=== PATIENT | male | born 1955 | race Caucasian/White ===

== ENCOUNTER 2019-05-17 11:23 | Inpatient (IN) | payer OTHER ==
[2019-05-17 12:21] VITALS: BMI 39.6
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
[2019-05-17] MEDS ORDERED: MAGNESIUM HYDROX 2400MG/30ML ORAL SUSPENSION 30 ML CUP PO PRN (13:26)
[2019-05-17] MEDS ORDERED: MAG HYDROX/AL HYDROX/SIMETH 30 ML UNIT-DOSE CUP PO PRN (13:26)
[2019-05-17] MEDS ORDERED: P-EPHED 60MG/TRIPROLIDI 2.5MG TABLET PO PRN (13:26)
[2019-05-17] MEDS ORDERED: LOPERAMIDE HCL 2 MG CAPSULE PO PRN (13:26)
[2019-05-17] MEDS ORDERED: MAGNESIUM CITRATE 300 ML BOTTLE PO PRN (13:26)
[2019-05-17] MEDS ORDERED: hydrOXYzine PAMOATE 25 MG CAPSULE (FP) PO PRN (13:26)
[2019-05-17] MEDS ORDERED: IBUPROFEN 400 MG TABLET (FP) PO PRN (13:26)
[2019-05-17] MEDS ORDERED: TUBERCULIN PPD 5 TU/0.1ML VIAL ID ONE (14:15)
[2019-05-17] MEDS: GABAPENTIN 300 MG CAPSULE PO SCH ×2 (14:24→21:17)
--- NOTE | 2019-05-17 15:29 | PN ---
[facility] Progress Note Note: Pt is a 63 y/o male with a hx of RASHID admitted to rehab from [facility] today.PMHx:HTN, Type 2 DM,DVT,Varicose Veins/sx left leg, Ambulates with walker. Psych Hx: Depreesion/Anxiety;[id number]-[id number]-txff sleeping and visual-"when i'm sleeping i see people". Pt reports he has a PCP(i don't remember the name, i got it in my wallet"). Vital Signs - 24 hr 05/17/19 11:45 Temperature 97.0 F L Pulse Rate 89 Respiratory 20 Rate Blood Pressure 161/105 H Alert o x 3,denies s/h/i nad oob ambulating with steady gait extremities/skin:varicose veins left lower leg,s/p surgery in 2019;left LE slight non-pitting edema, no redness skin intact. A/P new rehab pt Maintain safety cont. rehab f/u with psych consult.
[2019-05-17 17:39] LABS: HEMATOCRIT 40.4 % (35.4-49); HEMOGLOBIN 13.3 GM/dL (11.7-16.9); MCH 31.7 pg (25.7-33.7); MCHC 32.9 g/dl (32.0-35.9); MEAN CELL VOLUME 96.5 fl (80-96); MEAN PLT VOLUME 8.8 fl (7.5-11.1); PLATELET COUNT 310 K/MM3 (134-434); RBC 4.19 M/mm3 (4.00-5.60); RDW 15.5 % (11.9-15.9); WHITE BLOOD COUNT 7.5 K/mm3 (4.0-10.0)
[2019-05-17] MEDS: RIVAROXABAN 20 MG TABLET PO SCH (17:42)
[2019-05-17 18:05] LABS: ALBUMIN 3.5 g/dl (3.4-5.0); BILIRUBIN,TOTAL 0.2 mg/dL (0.2-1); BLOOD UREA NITROGEN 9.2 mg/dL (7-18)
[2019-05-17] MEDS: traZODone HCL 50 MG TABLET (FP) PO SCH (21:17)
[2019-05-17] MEDS: MONTELUKAST NA 10 MG TABLET PO SCH (21:17)
[2019-05-17] MEDS: THIAMINE HCL 100 MG TABLET (FP) PO SCH (21:17)
[2019-05-17] MEDS: ACETAMINOPHEN 325 MG TABLET (FP) PO PRN (21:19)
[2019-05-18] MEDS: GABAPENTIN 300 MG CAPSULE PO SCH ×3 (06:49→21:15)
[2019-05-18] MEDS ORDERED: ROSUVASTATIN CA 10 MG TABLET (FP) ONE (09:08)
[2019-05-18] MEDS: FUROSEMIDE 20 MG TABLET (FP) PO SCH (10:00)
[2019-05-18] MEDS: LISINOPRIL 20 MG TABLET (FP) PO SCH (10:00)
[2019-05-18] MEDS: PRENATAL VITAMINS W/ FOLIC ACID TABLET (FP) PO SCH (10:00)
[2019-05-18] MEDS: HYDROCHLOROTHIAZIDE 12.5 MG CAPSULE (FP) PO SCH (10:00)
[2019-05-18] MEDS: ROSUVASTATIN CA 20 MG TABLET (FP) PO SCH (10:01)
--- NOTE | 2019-05-18 10:04 | CONSULT ---
[facility] Psychiatric Consult - Data Date of interview: 05/18/19 Admission source: [facility] Identifying data: Patient is a 63 year old single male, father of four, unemployed, domiciled, and is supported by [facility]. This is one of multiple admissions for patient. Patient admitted to for alcohol and cocaine dependence. Substance Abuse History: Smoking Cessation. Smoking history: Never smoked. Hx Chewing Tobacco Use: No. - Substance & Tx. History. Hx Alcohol Use: Yes. Hx Substance Use: Yes. Substance Use Type: Alcohol, Cocaine. Hx Substance Use Treatment: Yes ([facility] to 05/17/2009). - Substances abused. Alcohol. Substance route: Oral. Frequency: Daily. Amount used: 2 PINTS VODKA. Age of first use: 11. Date of last use: 05/14/19. Cocaine. Substance route: Smoking. Frequency: Daily. Amount used: 2 GRAMS. Age of first use: 14. Date of last use: 05/14/19 Medical History: back surgery and varicose vein surgery left leg, dvt both legs , hypertension, type 2 dm Psychiatric History: Patient's first psychiatric contact was at 16 years of age after he was admitted to [facility] secondary to a suicide attempt. Mr. Arora reports two additional hospitalizations to [facility] with the last admission occuring in the . Patient reports history of depressed mood, anhedonia, amotivation, and loss of energy. States he has experienced auditory hallucinations of hearing his mother speak to him (mother no longer living) 2-3 times per month. States that he is currently provided with outpatient psychiatric care at the [facility] in the [place] and is prescribed Cymbalta 60mg + Trazodone 150mg HS. Patient currently denies suicidal/homicidal ideation, auditory/visual hallucinations. No psychosis noted. Physical/Sexual Abuse/Trauma History: denies. Mental Status Exam - Mental Status Exam Alert and Oriented to: Time, Place, Person Cognitive Function: Good Patient Appearance: Well Groomed Mood: Sad Affect: Appropriate Patient Behavior: Appropriate, Cooperative Speech Pattern: Appropriate Voice Loudness: Normal Thought Process: Goal Oriented Thought Disorder: Not Present Hallucinations: Denies Suicidal Ideation: Denies Homicidal Ideation: Denies Insight/Judgement: Poor Sleep: Fair Appetite: Fair Muscle strength/Tone: Normal Gait/Station: Other (Ambulates with a walker.) Psychiatric Findings - Problem List (Kinta 1, 2,3) (1) Substance induced mood disorder Current Visit: Yes Status: Chronic (2) Major depressive disorder Current Visit: Yes Status: Chronic (3) alcohol dependence Current Visit: Yes Status: Acute (4) cocaine dependence Current Visit: Yes Status: Acute - Initial Treatment Plan Initial Treatment Plan: Psychoeducation provided. Rehab in progress. Will order Cymbalta 60mg daily + Trazodone 150mg HS. Benefits and side effects discussed. Verbal consent given.
[2019-05-18 10:15] LABS: URINE APPEARANCE CLEAR; URINE BILIRUBIN NEGATIVE (NEGATIVE); URINE COLOR YELLOW; URINE GLUCOSE (UA) NEGATIVE (NEGATIVE); URINE KETONE NEGATIVE (NEGATIVE); URINE LEUK ESTERASE NEGATIVE (NEGATIVE); URINE NITRITE NEGATIVE (NEGATIVE); URINE PROTEIN NEGATIVE (NEGATIVE); URINE UROBILINOGEN 0.2 mg/dL (0.2-1.0)
[2019-05-18] MEDS: DULoxetine HCL 30 MG CAPSULE.DR PO SCH (11:10)
[2019-05-18] MEDS: RIVAROXABAN 20 MG TABLET PO SCH (16:52)
[2019-05-18] MEDS: MONTELUKAST NA 10 MG TABLET PO SCH (21:15)
[2019-05-18] MEDS: traZODone HCL 50 MG TABLET (FP) PO SCH (21:15)
[2019-05-18] MEDS: THIAMINE HCL 100 MG TABLET (FP) PO SCH (21:15)
[2019-05-18] MEDS: ALBUTEROL SO4 8 GM HFA INHALER IH PRN (21:17)
[2019-05-19] MEDS: GABAPENTIN 300 MG CAPSULE PO SCH ×3 (06:36→21:12)
[2019-05-19] MEDS ORDERED: ROSUVASTATIN CA 10 MG TABLET (FP) ONE (08:51)
[2019-05-19] MEDS: PRENATAL VITAMINS W/ FOLIC ACID TABLET (FP) PO SCH (11:25)
[2019-05-19] MEDS: DULoxetine HCL 30 MG CAPSULE.DR PO SCH (11:25)
[2019-05-19] MEDS: ROSUVASTATIN CA 20 MG TABLET (FP) PO SCH (11:26)
[2019-05-19] MEDS: HYDROCHLOROTHIAZIDE 12.5 MG CAPSULE (FP) PO SCH (11:26)
[2019-05-19] MEDS: LISINOPRIL 20 MG TABLET (FP) PO SCH (11:26)
[2019-05-19] MEDS: FUROSEMIDE 20 MG TABLET (FP) PO SCH (11:26)
[2019-05-19] MEDS: RIVAROXABAN 20 MG TABLET PO SCH (17:26)
[2019-05-19] MEDS: traZODone HCL 50 MG TABLET (FP) PO SCH (21:12)
[2019-05-19] MEDS: THIAMINE HCL 100 MG TABLET (FP) PO SCH (21:12)
[2019-05-19] MEDS: MONTELUKAST NA 10 MG TABLET PO SCH (21:12)
[2019-05-19] MEDS: ACETAMINOPHEN 325 MG TABLET (FP) PO PRN (23:38)
[2019-05-20] MEDS: GABAPENTIN 300 MG CAPSULE PO SCH ×3 (07:20→21:14)
[2019-05-20] MEDS ORDERED: ROSUVASTATIN CA 10 MG TABLET (FP) ONE (09:14)
[2019-05-20] MEDS: DULoxetine HCL 30 MG CAPSULE.DR PO SCH (10:06)
[2019-05-20] MEDS: PRENATAL VITAMINS W/ FOLIC ACID TABLET (FP) PO SCH (10:06)
[2019-05-20] MEDS: HYDROCHLOROTHIAZIDE 12.5 MG CAPSULE (FP) PO SCH (10:06)
[2019-05-20] MEDS: FUROSEMIDE 20 MG TABLET (FP) PO SCH (10:07)
[2019-05-20] MEDS: LISINOPRIL 20 MG TABLET (FP) PO SCH (10:07)
[2019-05-20] MEDS: ROSUVASTATIN CA 20 MG TABLET (FP) PO SCH (12:57)
[2019-05-20] MEDS: RIVAROXABAN 20 MG TABLET PO SCH (17:59)
[2019-05-20] MEDS: traZODone HCL 50 MG TABLET (FP) PO SCH (21:14)
[2019-05-20] MEDS: THIAMINE HCL 100 MG TABLET (FP) PO SCH (21:15)
[2019-05-20] MEDS: MONTELUKAST NA 10 MG TABLET PO SCH (21:15)
[2019-05-21] MEDS: ALBUTEROL SO4 8 GM HFA INHALER IH PRN (07:05)
[2019-05-21] MEDS: GABAPENTIN 300 MG CAPSULE PO SCH ×3 (07:05→21:15)
[2019-05-21] MEDS: guaiFENesin 200 MG/10 ML 10 ML UNIT-DOSE CUPS PO PRN ×2 (07:06→14:27)
[2019-05-21] MEDS: PRENATAL VITAMINS W/ FOLIC ACID TABLET (FP) PO SCH (10:09)
[2019-05-21] MEDS: FUROSEMIDE 20 MG TABLET (FP) PO SCH (10:09)
[2019-05-21] MEDS: DULoxetine HCL 30 MG CAPSULE.DR PO SCH (10:09)
[2019-05-21] MEDS: ROSUVASTATIN CA 20 MG TABLET (FP) PO SCH (10:09)
[2019-05-21] MEDS: LISINOPRIL 20 MG TABLET (FP) PO SCH (10:09)
[2019-05-21] MEDS: HYDROCHLOROTHIAZIDE 12.5 MG CAPSULE (FP) PO SCH (10:09)
[2019-05-21] MEDS: MENTHOL/PHENOL 1 EACH UD MM PRN (10:10)
[2019-05-21] MEDS: METHOCARBAMOL 500 MG TABLET PO PRN ×2 (10:12→21:15)
[2019-05-21] MEDS: ACETAMINOPHEN 325 MG TABLET (FP) PO PRN (10:12)
[2019-05-21] MEDS: RIVAROXABAN 20 MG TABLET PO SCH (17:48)
[2019-05-21] MEDS: THIAMINE HCL 100 MG TABLET (FP) PO SCH (21:14)
[2019-05-21] MEDS: traZODone HCL 50 MG TABLET (FP) PO SCH (21:14)
[2019-05-21] MEDS: MONTELUKAST NA 10 MG TABLET PO SCH (21:15)
[2019-05-21] MEDS: MELATONIN 5 MG TABLETS PO PRN (21:15)
[2019-05-22] MEDS: GABAPENTIN 300 MG CAPSULE PO SCH ×3 (06:28→21:16)
[2019-05-22] MEDS: guaiFENesin 200 MG/10 ML 10 ML UNIT-DOSE CUPS PO PRN (06:29)
[2019-05-22] MEDS: DULoxetine HCL 30 MG CAPSULE.DR PO SCH (10:28)
[2019-05-22] MEDS: PRENATAL VITAMINS W/ FOLIC ACID TABLET (FP) PO SCH (10:29)
[2019-05-22] MEDS: LISINOPRIL 20 MG TABLET (FP) PO SCH (10:29)
[2019-05-22] MEDS: ROSUVASTATIN CA 20 MG TABLET (FP) PO SCH (10:29)
[2019-05-22] MEDS: HYDROCHLOROTHIAZIDE 12.5 MG CAPSULE (FP) PO SCH (10:29)
[2019-05-22] MEDS: FUROSEMIDE 20 MG TABLET (FP) PO SCH (10:29)
[2019-05-22] MEDS: ALBUTEROL SO4 8 GM HFA INHALER IH PRN (10:31)
[2019-05-22] MEDS: RIVAROXABAN 20 MG TABLET PO SCH (17:38)
[2019-05-22] MEDS: METHOCARBAMOL 500 MG TABLET PO PRN (21:16)
[2019-05-22] MEDS: traZODone HCL 50 MG TABLET (FP) PO SCH (21:16)
[2019-05-22] MEDS: THIAMINE HCL 100 MG TABLET (FP) PO SCH (21:16)
[2019-05-22] MEDS: MONTELUKAST NA 10 MG TABLET PO SCH (21:16)
[2019-05-23] MEDS: GABAPENTIN 300 MG CAPSULE PO SCH ×3 (06:38→21:15)
[2019-05-23] MEDS: ALBUTEROL SO4 8 GM HFA INHALER IH PRN (10:52)
[2019-05-23] MEDS: DULoxetine HCL 30 MG CAPSULE.DR PO SCH (10:53)
[2019-05-23] MEDS: FUROSEMIDE 20 MG TABLET (FP) PO SCH (10:53)
[2019-05-23] MEDS: LISINOPRIL 20 MG TABLET (FP) PO SCH (10:53)
[2019-05-23] MEDS: PRENATAL VITAMINS W/ FOLIC ACID TABLET (FP) PO SCH (10:53)
[2019-05-23] MEDS: ROSUVASTATIN CA 20 MG TABLET (FP) PO SCH (10:53)
[2019-05-23] MEDS: HYDROCHLOROTHIAZIDE 12.5 MG CAPSULE (FP) PO SCH (10:53)
[2019-05-23] MEDS: METHOCARBAMOL 500 MG TABLET PO PRN ×2 (15:33→21:15)
[2019-05-23] MEDS: ACETAMINOPHEN 325 MG TABLET (FP) PO PRN (15:34)
[2019-05-23] MEDS: RIVAROXABAN 20 MG TABLET PO SCH (17:56)
[2019-05-23] MEDS: MONTELUKAST NA 10 MG TABLET PO SCH (21:15)
[2019-05-23] MEDS: traZODone HCL 50 MG TABLET (FP) PO SCH (21:15)
[2019-05-23] MEDS: THIAMINE HCL 100 MG TABLET (FP) PO SCH (21:15)
[2019-05-24] MEDS: GABAPENTIN 300 MG CAPSULE PO SCH ×3 (06:59→21:02)
[2019-05-24] MEDS: ALBUTEROL SO4 8 GM HFA INHALER IH PRN (07:01)
[2019-05-24] MEDS: DULoxetine HCL 30 MG CAPSULE.DR PO SCH (10:23)
[2019-05-24] MEDS: LISINOPRIL 20 MG TABLET (FP) PO SCH (10:23)
[2019-05-24] MEDS: FUROSEMIDE 20 MG TABLET (FP) PO SCH (10:23)
[2019-05-24] MEDS: ROSUVASTATIN CA 20 MG TABLET (FP) PO SCH (10:24)
[2019-05-24] MEDS: PRENATAL VITAMINS W/ FOLIC ACID TABLET (FP) PO SCH (10:24)
[2019-05-24] MEDS: HYDROCHLOROTHIAZIDE 12.5 MG CAPSULE (FP) PO SCH (10:24)
[2019-05-24] MEDS: RIVAROXABAN 20 MG TABLET PO SCH (17:05)
[2019-05-24] MEDS: THIAMINE HCL 100 MG TABLET (FP) PO SCH (21:02)
[2019-05-24] MEDS: traZODone HCL 50 MG TABLET (FP) PO SCH (21:02)
[2019-05-24] MEDS: MONTELUKAST NA 10 MG TABLET PO SCH (21:02)
[2019-05-25] MEDS: GABAPENTIN 300 MG CAPSULE PO SCH ×3 (06:56→21:11)
[2019-05-25] MEDS: ALBUTEROL SO4 8 GM HFA INHALER IH PRN (06:56)
[2019-05-25] MEDS: FUROSEMIDE 20 MG TABLET (FP) PO SCH (09:49)
[2019-05-25] MEDS: HYDROCHLOROTHIAZIDE 12.5 MG CAPSULE (FP) PO SCH (09:49)
[2019-05-25] MEDS: DULoxetine HCL 30 MG CAPSULE.DR PO SCH (09:49)
[2019-05-25] MEDS: LISINOPRIL 20 MG TABLET (FP) PO SCH (09:49)
[2019-05-25] MEDS: PRENATAL VITAMINS W/ FOLIC ACID TABLET (FP) PO SCH (09:49)
[2019-05-25] MEDS: ROSUVASTATIN CA 20 MG TABLET (FP) PO SCH (09:49)
[2019-05-25] MEDS: guaiFENesin 200 MG/10 ML 10 ML UNIT-DOSE CUPS PO PRN (09:50)
[2019-05-25] MEDS: RIVAROXABAN 20 MG TABLET PO SCH (16:32)
[2019-05-25] MEDS: THIAMINE HCL 100 MG TABLET (FP) PO SCH (21:10)
[2019-05-25] MEDS: traZODone HCL 50 MG TABLET (FP) PO SCH (21:10)
[2019-05-25] MEDS: MONTELUKAST NA 10 MG TABLET PO SCH (21:11)
[2019-05-26] MEDS: GABAPENTIN 300 MG CAPSULE PO SCH ×3 (06:29→21:22)
[2019-05-26] MEDS: ACETAMINOPHEN 325 MG TABLET (FP) PO PRN (06:30)
[2019-05-26] MEDS: DULoxetine HCL 30 MG CAPSULE.DR PO SCH (09:49)
[2019-05-26] MEDS: FUROSEMIDE 20 MG TABLET (FP) PO SCH (09:49)
[2019-05-26] MEDS: ROSUVASTATIN CA 20 MG TABLET (FP) PO SCH (09:49)
[2019-05-26] MEDS: LISINOPRIL 20 MG TABLET (FP) PO SCH (09:49)
[2019-05-26] MEDS: HYDROCHLOROTHIAZIDE 12.5 MG CAPSULE (FP) PO SCH (09:49)
[2019-05-26] MEDS: PRENATAL VITAMINS W/ FOLIC ACID TABLET (FP) PO SCH (09:49)
[2019-05-26] MEDS: RIVAROXABAN 20 MG TABLET PO SCH (16:42)
[2019-05-26] MEDS: traZODone HCL 50 MG TABLET (FP) PO SCH (21:21)
[2019-05-26] MEDS: THIAMINE HCL 100 MG TABLET (FP) PO SCH (21:22)
[2019-05-26] MEDS: MELATONIN 5 MG TABLETS PO PRN (21:22)
[2019-05-26] MEDS: MONTELUKAST NA 10 MG TABLET PO SCH (21:22)
[2019-05-27] MEDS: GABAPENTIN 300 MG CAPSULE PO SCH ×3 (07:24→21:16)
[2019-05-27] MEDS: DULoxetine HCL 30 MG CAPSULE.DR PO SCH (09:58)
[2019-05-27] MEDS: FUROSEMIDE 20 MG TABLET (FP) PO SCH (09:58)
[2019-05-27] MEDS: LISINOPRIL 20 MG TABLET (FP) PO SCH (09:59)
[2019-05-27] MEDS: ALBUTEROL SO4 8 GM HFA INHALER IH PRN (09:59)
[2019-05-27] MEDS: ROSUVASTATIN CA 20 MG TABLET (FP) PO SCH (09:59)
[2019-05-27] MEDS: PRENATAL VITAMINS W/ FOLIC ACID TABLET (FP) PO SCH (09:59)
[2019-05-27] MEDS: METHOCARBAMOL 500 MG TABLET PO PRN (10:00)
[2019-05-27] MEDS: guaiFENesin 200 MG/10 ML 10 ML UNIT-DOSE CUPS PO PRN (10:01)
[2019-05-27] MEDS: HYDROCHLOROTHIAZIDE 12.5 MG CAPSULE (FP) PO SCH (10:01)
[2019-05-27] MEDS: RIVAROXABAN 20 MG TABLET PO SCH (16:51)
[2019-05-27] MEDS: traZODone HCL 50 MG TABLET (FP) PO SCH (21:16)
[2019-05-27] MEDS: MONTELUKAST NA 10 MG TABLET PO SCH (21:16)
[2019-05-27] MEDS: THIAMINE HCL 100 MG TABLET (FP) PO SCH (21:16)
[2019-05-28] MEDS: GABAPENTIN 300 MG CAPSULE PO SCH ×3 (07:10→21:20)
[2019-05-28] MEDS: PRENATAL VITAMINS W/ FOLIC ACID TABLET (FP) PO SCH (10:22)
[2019-05-28] MEDS: DULoxetine HCL 30 MG CAPSULE.DR PO SCH (10:22)
[2019-05-28] MEDS: ALBUTEROL SO4 8 GM HFA INHALER IH PRN (10:23)
[2019-05-28] MEDS: LISINOPRIL 20 MG TABLET (FP) PO SCH (10:23)
[2019-05-28] MEDS: FUROSEMIDE 20 MG TABLET (FP) PO SCH (10:23)
[2019-05-28] MEDS: ROSUVASTATIN CA 20 MG TABLET (FP) PO SCH (10:23)
[2019-05-28] MEDS: HYDROCHLOROTHIAZIDE 12.5 MG CAPSULE (FP) PO SCH (10:23)
[2019-05-28] MEDS: RIVAROXABAN 20 MG TABLET PO SCH (16:34)
[2019-05-28] MEDS: THIAMINE HCL 100 MG TABLET (FP) PO SCH (21:20)
[2019-05-28] MEDS: traZODone HCL 50 MG TABLET (FP) PO SCH (21:20)
[2019-05-28] MEDS: MONTELUKAST NA 10 MG TABLET PO SCH (21:20)
[2019-05-29] MEDS: GABAPENTIN 300 MG CAPSULE PO SCH ×3 (06:54→21:22)
[2019-05-29] MEDS: ACETAMINOPHEN 325 MG TABLET (FP) PO PRN (07:01)
[2019-05-29] MEDS: guaiFENesin 200 MG/10 ML 10 ML UNIT-DOSE CUPS PO PRN (07:01)
[2019-05-29] MEDS: DULoxetine HCL 30 MG CAPSULE.DR PO SCH (10:17)
[2019-05-29] MEDS: FUROSEMIDE 20 MG TABLET (FP) PO SCH (10:17)
[2019-05-29] MEDS: LISINOPRIL 20 MG TABLET (FP) PO SCH (10:17)
[2019-05-29] MEDS: PRENATAL VITAMINS W/ FOLIC ACID TABLET (FP) PO SCH (10:17)
[2019-05-29] MEDS: ROSUVASTATIN CA 20 MG TABLET (FP) PO SCH (10:18)
[2019-05-29] MEDS: HYDROCHLOROTHIAZIDE 12.5 MG CAPSULE (FP) PO SCH (10:18)
[2019-05-29] MEDS: RIVAROXABAN 20 MG TABLET PO SCH (17:42)
[2019-05-29] MEDS: traZODone HCL 50 MG TABLET (FP) PO SCH (21:22)
[2019-05-29] MEDS: MONTELUKAST NA 10 MG TABLET PO SCH (21:22)
[2019-05-29] MEDS: THIAMINE HCL 100 MG TABLET (FP) PO SCH (21:22)
[2019-05-30] MEDS: GABAPENTIN 300 MG CAPSULE PO SCH ×3 (06:28→21:14)
[2019-05-30] MEDS: LISINOPRIL 20 MG TABLET (FP) PO SCH (10:05)
[2019-05-30] MEDS: DULoxetine HCL 30 MG CAPSULE.DR PO SCH (10:05)
[2019-05-30] MEDS: PRENATAL VITAMINS W/ FOLIC ACID TABLET (FP) PO SCH (10:05)
[2019-05-30] MEDS: guaiFENesin 200 MG/10 ML 10 ML UNIT-DOSE CUPS PO PRN (10:05)
[2019-05-30] MEDS: FUROSEMIDE 20 MG TABLET (FP) PO SCH (10:05)
[2019-05-30] MEDS: HYDROCHLOROTHIAZIDE 12.5 MG CAPSULE (FP) PO SCH (10:05)
[2019-05-30] MEDS: ACETAMINOPHEN 325 MG TABLET (FP) PO PRN (10:05)
[2019-05-30] MEDS: ROSUVASTATIN CA 20 MG TABLET (FP) PO SCH (10:05)
[2019-05-30] MEDS: ALBUTEROL SO4 8 GM HFA INHALER IH PRN (10:07)
[2019-05-30] MEDS: RIVAROXABAN 20 MG TABLET PO SCH (17:02)
[2019-05-30] MEDS: traZODone HCL 50 MG TABLET (FP) PO SCH (21:13)
[2019-05-30] MEDS: MONTELUKAST NA 10 MG TABLET PO SCH (21:14)
[2019-05-30] MEDS: THIAMINE HCL 100 MG TABLET (FP) PO SCH (21:14)
[2019-05-31] MEDS: GABAPENTIN 300 MG CAPSULE PO SCH ×3 (06:20→21:07)
[2019-05-31] MEDS: HYDROCHLOROTHIAZIDE 12.5 MG CAPSULE (FP) PO SCH (10:13)
[2019-05-31] MEDS: LISINOPRIL 20 MG TABLET (FP) PO SCH (10:13)
[2019-05-31] MEDS: DULoxetine HCL 30 MG CAPSULE.DR PO SCH (10:13)
[2019-05-31] MEDS: ROSUVASTATIN CA 20 MG TABLET (FP) PO SCH (10:13)
[2019-05-31] MEDS: FUROSEMIDE 20 MG TABLET (FP) PO SCH (10:13)
[2019-05-31] MEDS: PRENATAL VITAMINS W/ FOLIC ACID TABLET (FP) PO SCH (10:13)
[2019-05-31] MEDS: guaiFENesin 200 MG/10 ML 10 ML UNIT-DOSE CUPS PO PRN (10:14)
[2019-05-31] MEDS: RIVAROXABAN 20 MG TABLET PO SCH (17:02)
[2019-05-31] MEDS: traZODone HCL 50 MG TABLET (FP) PO SCH (21:07)
[2019-05-31] MEDS: ACETAMINOPHEN 325 MG TABLET (FP) PO PRN (21:08)
[2019-05-31] MEDS: THIAMINE HCL 100 MG TABLET (FP) PO SCH (21:08)
[2019-05-31] MEDS: MONTELUKAST NA 10 MG TABLET PO SCH (21:08)
[2019-06-01] MEDS: GABAPENTIN 300 MG CAPSULE PO SCH ×3 (06:55→21:13)
[2019-06-01] MEDS: PRENATAL VITAMINS W/ FOLIC ACID TABLET (FP) PO SCH (09:38)
[2019-06-01] MEDS: METHOCARBAMOL 500 MG TABLET PO PRN (09:38)
[2019-06-01] MEDS: DULoxetine HCL 30 MG CAPSULE.DR PO SCH (09:38)
[2019-06-01] MEDS: FUROSEMIDE 20 MG TABLET (FP) PO SCH (09:38)
[2019-06-01] MEDS: HYDROCHLOROTHIAZIDE 12.5 MG CAPSULE (FP) PO SCH (09:39)
[2019-06-01] MEDS: LISINOPRIL 20 MG TABLET (FP) PO SCH (09:39)
[2019-06-01] MEDS: ROSUVASTATIN CA 20 MG TABLET (FP) PO SCH (09:39)
[2019-06-01] MEDS: ACETAMINOPHEN 325 MG TABLET (FP) PO PRN (09:39)
[2019-06-01] MEDS: guaiFENesin 200 MG/10 ML 10 ML UNIT-DOSE CUPS PO PRN (09:40)
[2019-06-01] MEDS: RIVAROXABAN 20 MG TABLET PO SCH (18:00)
[2019-06-01] MEDS: MONTELUKAST NA 10 MG TABLET PO SCH (21:13)
[2019-06-01] MEDS: THIAMINE HCL 100 MG TABLET (FP) PO SCH (21:13)
[2019-06-01] MEDS: traZODone HCL 50 MG TABLET (FP) PO SCH (21:13)
[2019-06-02] MEDS: GABAPENTIN 300 MG CAPSULE PO SCH ×3 (06:18→21:14)
[2019-06-02] MEDS: guaiFENesin 200 MG/10 ML 10 ML UNIT-DOSE CUPS PO PRN (06:19)
[2019-06-02] MEDS: ACETAMINOPHEN 325 MG TABLET (FP) PO PRN (06:19)
[2019-06-02] MEDS: HYDROCHLOROTHIAZIDE 12.5 MG CAPSULE (FP) PO SCH (10:14)
[2019-06-02] MEDS: FUROSEMIDE 20 MG TABLET (FP) PO SCH (10:14)
[2019-06-02] MEDS: LISINOPRIL 20 MG TABLET (FP) PO SCH (10:15)
[2019-06-02] MEDS: PRENATAL VITAMINS W/ FOLIC ACID TABLET (FP) PO SCH (10:15)
[2019-06-02] MEDS: DULoxetine HCL 30 MG CAPSULE.DR PO SCH (10:15)
[2019-06-02] MEDS: ROSUVASTATIN CA 20 MG TABLET (FP) PO SCH (10:15)
[2019-06-02] MEDS: RIVAROXABAN 20 MG TABLET PO SCH (16:58)
[2019-06-02] MEDS: MONTELUKAST NA 10 MG TABLET PO SCH (21:14)
[2019-06-02] MEDS: THIAMINE HCL 100 MG TABLET (FP) PO SCH (21:14)
[2019-06-02] MEDS: traZODone HCL 50 MG TABLET (FP) PO SCH (21:14)
[2019-06-03] MEDS: GABAPENTIN 300 MG CAPSULE PO SCH ×3 (06:04→21:11)
[2019-06-03] MEDS: ACETAMINOPHEN 325 MG TABLET (FP) PO PRN ×2 (06:05→10:24)
[2019-06-03] MEDS: PRENATAL VITAMINS W/ FOLIC ACID TABLET (FP) PO SCH (10:22)
[2019-06-03] MEDS: HYDROCHLOROTHIAZIDE 12.5 MG CAPSULE (FP) PO SCH (10:22)
[2019-06-03] MEDS: LISINOPRIL 20 MG TABLET (FP) PO SCH (10:22)
[2019-06-03] MEDS: FUROSEMIDE 20 MG TABLET (FP) PO SCH (10:22)
[2019-06-03] MEDS: ROSUVASTATIN CA 20 MG TABLET (FP) PO SCH (10:22)
[2019-06-03] MEDS: METHOCARBAMOL 500 MG TABLET PO PRN (10:24)
[2019-06-03] MEDS: DULoxetine HCL 60 MG CAPSULE.DR PO SCH (10:44)
[2019-06-03] MEDS: RIVAROXABAN 20 MG TABLET PO SCH (17:46)
[2019-06-03] MEDS: traZODone HCL 50 MG TABLET (FP) PO SCH (21:10)
[2019-06-03] MEDS: THIAMINE HCL 100 MG TABLET (FP) PO SCH (21:11)
[2019-06-03] MEDS: MONTELUKAST NA 10 MG TABLET PO SCH (21:11)
[2019-06-04] MEDS: ACETAMINOPHEN 325 MG TABLET (FP) PO PRN (06:28)
[2019-06-04] MEDS: GABAPENTIN 300 MG CAPSULE PO SCH ×3 (06:28→21:08)
[2019-06-04] MEDS ORDERED: DULoxetine HCL 30 MG CAPSULE.DR PO ONE (08:42)
[2019-06-04] MEDS: LISINOPRIL 20 MG TABLET (FP) PO SCH (09:47)
[2019-06-04] MEDS: HYDROCHLOROTHIAZIDE 12.5 MG CAPSULE (FP) PO SCH (09:47)
[2019-06-04] MEDS: ROSUVASTATIN CA 20 MG TABLET (FP) PO SCH (09:48)
[2019-06-04] MEDS: PRENATAL VITAMINS W/ FOLIC ACID TABLET (FP) PO SCH (09:49)
[2019-06-04] MEDS: DULoxetine HCL 60 MG CAPSULE.DR PO SCH (09:49)
[2019-06-04] MEDS: FUROSEMIDE 20 MG TABLET (FP) PO SCH (09:50)
[2019-06-04] MEDS: RIVAROXABAN 20 MG TABLET PO SCH (16:55)
[2019-06-04] MEDS: MONTELUKAST NA 10 MG TABLET PO SCH (21:08)
[2019-06-04] MEDS: traZODone HCL 50 MG TABLET (FP) PO SCH (21:08)
[2019-06-04] MEDS: THIAMINE HCL 100 MG TABLET (FP) PO SCH (21:08)
[2019-06-05] MEDS: GABAPENTIN 300 MG CAPSULE PO SCH ×3 (06:25→21:16)
[2019-06-05] MEDS ORDERED: DULoxetine HCL 30 MG CAPSULE.DR PO ONE (09:03)
[2019-06-05] MEDS: LISINOPRIL 20 MG TABLET (FP) PO SCH (10:04)
[2019-06-05] MEDS: ROSUVASTATIN CA 20 MG TABLET (FP) PO SCH (10:04)
[2019-06-05] MEDS: HYDROCHLOROTHIAZIDE 12.5 MG CAPSULE (FP) PO SCH (10:05)
[2019-06-05] MEDS: DULoxetine HCL 60 MG CAPSULE.DR PO SCH (10:05)
[2019-06-05] MEDS: PRENATAL VITAMINS W/ FOLIC ACID TABLET (FP) PO SCH (10:05)
[2019-06-05] MEDS: FUROSEMIDE 20 MG TABLET (FP) PO SCH (10:05)
[2019-06-05] MEDS: RIVAROXABAN 20 MG TABLET PO SCH (17:44)
[2019-06-05] MEDS: traZODone HCL 50 MG TABLET (FP) PO SCH (21:16)
[2019-06-05] MEDS: THIAMINE HCL 100 MG TABLET (FP) PO SCH (21:16)
[2019-06-05] MEDS: MONTELUKAST NA 10 MG TABLET PO SCH (21:16)
[2019-06-06] MEDS: GABAPENTIN 300 MG CAPSULE PO SCH ×3 (06:17→21:16)
[2019-06-06 06:53] VITALS: TEMP 97.1
[2019-06-06] MEDS: ROSUVASTATIN CA 20 MG TABLET (FP) PO SCH (10:01)
[2019-06-06] MEDS: LISINOPRIL 20 MG TABLET (FP) PO SCH (10:01)
[2019-06-06] MEDS: FUROSEMIDE 20 MG TABLET (FP) PO SCH (10:01)
[2019-06-06] MEDS: HYDROCHLOROTHIAZIDE 12.5 MG CAPSULE (FP) PO SCH (10:01)
[2019-06-06] MEDS: PRENATAL VITAMINS W/ FOLIC ACID TABLET (FP) PO SCH (10:01)
[2019-06-06] MEDS: DULoxetine HCL 60 MG CAPSULE.DR PO SCH (10:02)
[2019-06-06] MEDS: guaiFENesin 200 MG/10 ML 10 ML UNIT-DOSE CUPS PO PRN (10:03)
[2019-06-06] MEDS: MENTHOL/PHENOL 1 EACH UD MM PRN (10:05)
--- NOTE | 2019-06-06 11:54 | PN ---
[facility] Progress Note Note: Patient is scheduled for discharge tomorrow. Scripts for 30 days supply of medications(Cymbalta 60 mg/day, Trazadone 150 mg/hs) will be electronically transmitted to [facility] at [address] [place] [id number]
[2019-06-06] MEDS: RIVAROXABAN 20 MG TABLET PO SCH (17:51)
[2019-06-06] MEDS: MONTELUKAST NA 10 MG TABLET PO SCH (21:16)
[2019-06-06] MEDS: traZODone HCL 50 MG TABLET (FP) PO SCH (21:16)
[2019-06-06] MEDS: THIAMINE HCL 100 MG TABLET (FP) PO SCH (21:16)
[2019-06-07] MEDS: GABAPENTIN 300 MG CAPSULE PO SCH (06:47)
[2019-06-07 06:59] VITALS: BP 114/68; PULSE 88
[2019-06-07] MEDS: ROSUVASTATIN CA 20 MG TABLET (FP) PO SCH (10:02)
[2019-06-07] MEDS: PRENATAL VITAMINS W/ FOLIC ACID TABLET (FP) PO SCH (10:02)
[2019-06-07] MEDS: HYDROCHLOROTHIAZIDE 12.5 MG CAPSULE (FP) PO SCH (10:02)
[2019-06-07] MEDS: DULoxetine HCL 60 MG CAPSULE.DR PO SCH (10:03)
[2019-06-07] MEDS: LISINOPRIL 20 MG TABLET (FP) PO SCH (10:03)
[2019-06-07] MEDS: FUROSEMIDE 20 MG TABLET (FP) PO SCH (10:03)
--- NOTE | 2019-06-07 11:25 | DS ---
[facility] Rehab Discharge Summary - [facility] Rehab Discharge Summary Admission Date: 05/17/19 Discharge Date: 06/07/19 - History Present History: Alcohol dependence, Cocaine dependence Additional Comments: Pt is a 63 y/o male with a hx of RASHID admitted to rehab and scheduled for discharge today. Pt reports he has own primary care doctor who manages his care( has his name in his wallet in security property-unable to remember the name). Pt was seen by his counselor and CD aftercare plan. Pertinent Past History: Asthma DVT, Maya.(on xarelto) Varicose veins, Left Leg HTN DM(no meds)??? GERD Chronic LE Edema Walker for Ambulation Hx Back Surgery MDD - Discharge Physical Exam Vital Signs: Vital Signs Temperature 97.1 F L 06/07/19 06:58 Pulse Rate 88 06/07/19 06:58 Respiratory Rate 18 06/07/19 06:58 Blood Pressure 114/68 06/07/19 06:58 O2 Sat by Pulse Oximetry (%) Pertinent Admission Physical Exam Findings: Laboratory Tests 05/17/19 05/17/19 05/17/19 13:30 13:30 13:30 WBC 7.5 RBC 4.19 Hgb 13.3 Hct 40.4 MCV 96.5 H MCH 31.7 MCHC 32.9 RDW 15.5 D Plt Count 310 D MPV 8.8 Sodium 138 Potassium 4.0 Chloride 105 Carbon Dioxide 25 Anion Gap 8 BUN 9.2 Creatinine 1.0 Est GFR (CKD-EPI)AfAm 91.13 Est GFR (CKD-EPI)NonAf 78.63 POC Glucometer Random Glucose 91 Calcium 9.0 Total Bilirubin 0.2 AST 22 ALT 32 Alkaline Phosphatase 109 Total Protein 7.0 Albumin 3.5 Urine Color Urine Appearance Urine pH Ur Specific [place] Urine Protein Urine Glucose (UA) Urine Ketones Urine Blood Urine Nitrite Urine Bilirubin Urine Urobilinogen Ur Leukocyte Esterase RPR Titer Nonreactive 05/17/19 06/02/19 21:27 07:27 WBC RBC Hgb Hct MCV MCH MCHC RDW Plt Count MPV Sodium Potassium Chloride Carbon Dioxide Anion Gap BUN Creatinine Est GFR (CKD-EPI)AfAm Est GFR (CKD-EPI)NonAf POC Glucometer 117 Random Glucose Calcium Total Bilirubin AST ALT Alkaline Phosphatase Total Protein Albumin Urine Color Yellow Urine Appearance Clear Urine pH 6.0 Ur Specific [place] 1.018 Urine Protein Negative Urine Glucose (UA) Negative Urine Ketones Negative Urine Blood Negative Urine Nitrite Negative Urine Bilirubin Negative Urine Urobilinogen 0.2 Ur Leukocyte Esterase Negative RPR Titer - Treatment Discharge Condition: Discharge condition good Hospital Course: Rehabilitated safely CD aftercare referral accepted Participated in group activities as tolerated and individual sessions while in rehab treatment. - Medication Discharge Medications: Ambulatory Orders Albuterol Sulfate Inhaler - [Ventolin HFA Inhaler -] 1 - 2 inh IH Q4H 12/09/11 Ibuprofen [Motrin -] 600 mg PO TID 12/09/11 Lisinopril/Hydrochlorothiazide [Lisinopril-Hctz 20-12.5 mg Tab] 1 each PO DAILY 12/09/11 Loratadine [Claritin] 10 mg PO DAILY 12/09/11 Methocarbamol [Robaxin -] 750 mg PO HS #0 tablet 01/10/12 Montelukast Na [Singulair -] 10 mg PO HS #0 tablet 01/10/12 Rosuvastatin Calcium [Crestor] 20 mg PO DAILY #0 01/10/12 Citalopram Hydrobromide [Celexa -] 20 mg PO DAILY #0 tablet 11/21/12 Furosemide [Lasix -] 20 mg PO DAILY #0 tablet 11/21/12 Lisinopril [Prinivil] 20 mg PO DAILY #0 tablet 11/21/12 Gabapentin 300 mg PO TID 05/17/19 Rivaroxaban [Xarelto -] 20 mg PO HS 05/17/19 traZODone HCL [Desyrel -] 150 mg PO HS 05/17/19 Duloxetine HCl [Cymbalta -] 60 mg PO DAILY #30 capsule. 06/06/19 Duloxetine HCl [Cymbalta] 60 mg PO DAILY #30 capsule. 06/06/19 Trazodone HCl 150 mg PO HS #30 tablet 06/06/19 - Medication-Assisted Treatment (MAT) Medication-Assisted Treatment (MAT): No - Discharge Instructions Diet, activity, other medical instructions: Diet:BRANDON/Low cholesterol Activity: oob ad kinsey Other medical instructions:follow up with CD aftercare recommendations as scheduled. Follow up with your primary care provider within 1-2 weeks after discharge. - Diagnosis (1) Varicose vein of leg Status: Chronic Qualifiers: Laterality: left (2) Asthma Status: Chronic (3) essential hypertension Status: Chronic (4) hypercholestrolemia Status: Chronic (5) seizure alcohol related Status: Suspected (6) varicose veins both legs s/p surgery left Status: Chronic (7) History of DVT (deep vein thrombosis) Status: Chronic (8) History of back surgery Status: Resolved (9) Walker as ambulation aid Status: Chronic (10) alcohol dependence Status: Chronic (11) cocaine dependence Status: Chronic - Follow-up Referral Minutes to complete discharge: 20 - AMA Did Patient Leave Against Medical Advice: No Additional Comments: Pt reports he has own meds in his property. Pt's 3 monthly med Rx confirmed from [facility] . Last picked up 04/25/19 and due in July per pharmacy staff.
== END 2019-06-07 10:35 | disposition home or self-care (01) | DRG 895 ==
LOC: YASAS 11:23 → Y5N 13:27
PROVIDERS: ADMIT Neuromusculoskeletal Medicine & OMM; ATTEND Neuromusculoskeletal Medicine & OMM
PROC: HZ42ZZZ Group Counseling for Substance Abuse Treatment, Cognitive-Behavioral (ICD-10-PCS; principal; 2019-05-17)
DX: F10.20 Alcohol dependence, uncomplicated (principal); F14.20 Cocaine dependence, uncomplicated; F33.9 Major depressive disorder, recurrent, unspecified; F19.24 Other psychoactive substance dependence with psychoactive substance-induced mood disorder; I10 Essential (primary) hypertension; E11.9 Type 2 diabetes mellitus without complications; E78.00 Pure hypercholesterolemia, unspecified; J45.909 Unspecified asthma, uncomplicated; K21.9 Gastro-esophageal reflux disease without esophagitis; R60.0 Localized edema; R56.9 Unspecified convulsions; I83.92 Asymptomatic varicose veins of left lower extremity; Z86.718 Personal history of other venous thrombosis and embolism; Z79.01 Long term (current) use of anticoagulants; Z98.890 Other specified postprocedural states; Z99.89 Dependence on other enabling machines and devices
CPT/HCPCS: 36415; 80053; 81003; 82962; 85027; 86593